=== PATIENT | female | born 2000 | race Caucasian/White ===

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

== ENCOUNTER 2019-06-24 16:49 | Emergency (ER) | payer MEDICAID ==
[~2019-06-24] VITALS: Ht 160 cm; Wt 70.0 kg
[~2019-06-24 16:49] MED LIST: TYLENOL W/COD1 UDTAB PO
[2019-06-24 16:55] VITALS: BP 112/56; TEMP 98.4
[2019-06-24] MEDS ORDERED: AMOXICILLIN 50500 MG (17:35)
[2019-06-24] MEDS ORDERED: PRENATAL TABLET PO (17:36)
[2019-06-24 17:50] LABS: BASO % 0.3 % (0.0-2.0); EOS # 0.2 (0.0-0.7); EOS % 2.3 % (0-4.0); GRAN # 4.6 (1.4-6.5); GRAN % 67.4 % (42.2-75.2); HEMATOCRIT 38.1 % (37.0-47.0); HEMOGLOBIN 12.6 g/dl (12.5-16.0); LYMPH # 1.6 (1.2-3.4); LYMPH % 23.2 % (20.0-51.0); MEAN CELL VOLUME 91 fl (80.0-100.0); MEAN CORPUSCULAR HEMOGLOBIN 30 pg (27.0-31.0); MEAN CORPUSCULAR HGB CONC 33 g/dl (33.0-37.0); MONO # 0.5 (0.1-0.6); MONO % 6.7 % (1.7-9.3); PLATELET COUNT 203 K/mm3 (130-400); RED BLOOD COUNT 4.21 M/mm3 (4.10-5.30); REDCELL DISTRIBUTION WIDTH-CV 13.2 % (11.5-14.5)
[2019-06-24 17:54] LABS: COLLECTION METHOD CLEAN CATCH
[2019-06-24 18:00] LABS: MUCOUS Present /lpf; PH 6 (5-8); URINE APPEARANCE Hazy; URINE BACTERIA None Seen /hpf; URINE BILIRUBIN Negative (NEGATIVE); URINE BLOOD Negative (NEGATIVE); URINE COLOR Yellow; URINE GLUCOSE Negative (NEGATIVE); URINE KETONE Negative (NEGATIVE); URINE LEUKOCYTE ESTERASE 1+ (NEGATIVE); URINE NITRATE Negative (NEGATIVE); URINE PROTEIN(semi-quant) Negative (NEGATIVE); URINE RBC 0-2 /hpf; URINE UROBILINOGEN Negative (NEGATIVE)
[2019-06-24 18:13] LABS: ALBUMIN 3.9 gm/dL (3.5-5.0); BILIRUBIN,TOTAL 0.2 mg/dL (0.0-1.0); CALCIUM 9.4 mg/dL (8.4-10.2); CREATININE, serum 0.57 (0.52-1.25); POTASSIUM 3.9 mmol/L (3.4-5.0)
[2019-06-24] MEDS ORDERED: FLAGYL500 MG PO (18:40)
[2019-06-24 18:46] VITALS: PULSE 84
== END 2019-06-24 18:45 | disposition home or self-care (01) ==
LOC: COL.ER 16:49
PROVIDERS: Nurse Practitioner
DX: O23.591 Infection of other part of genital tract in pregnancy, first trimester (principal); O99.331 Smoking (tobacco) complicating pregnancy, first trimester; B96.89 Other specified bacterial agents as the cause of diseases classified elsewhere; F17.210 Nicotine dependence, cigarettes, uncomplicated; Z3A.00 Weeks of gestation of pregnancy not specified

== ENCOUNTER 2020-01-03 08:48 | Inpatient (IN) | payer MEDICAID ==
[~2020-01-03] VITALS: Ht 160 cm; Wt 95.5 kg
[~2020-01-03 08:48] MED LIST changes: +AMOXICILLIN 50500 MG; +FLAGYL500 MG PO; +PRENATAL TABLET PO
[2020-01-04] VITALS (40 sets, daily range): BP systolic 112–194; BP diastolic 57–108; PULSE 59–81; TEMP 98.1
--- NOTE | 2020-01-04 07:45 | NUR ---
PT AND BOYFRIEND ARRIVE TO UNIT FOR SCHEDULED INDUCTION OF LABOR AT 0735. PT CHANGED INTO GOWN, EFM EXPLAINED AND PLACED. PT DENIES LEAKING OF FLUID, VAGINAL BLEEDING, AND CONTRACTIONS, REPORTS GOOD MOVEMENT. PT ANXIOUS WITH MANY QUESTIONS.
[2020-01-04] MEDS ORDERED: IRON PO (08:16)
[2020-01-04 08:57] LABS: BASO % 0.3 % (0.0-2.0); EOS # 0.4 (0.0-0.7); EOS % 4.4 % (0-4.0); GRAN # 6.2 (1.4-6.5); HEMATOCRIT 38.5 % (37.0-47.0); HEMOGLOBIN 12.6 g/dl (12.5-16.0); LYMPH # 2.4 (1.2-3.4); LYMPH % 24.1 % (20.0-51.0); MEAN CELL VOLUME 93 fl (80.0-100.0); MEAN CORPUSCULAR HEMOGLOBIN 31 pg (27.0-31.0); MEAN CORPUSCULAR HGB CONC 33 g/dl (33.0-37.0); MEAN PLATELET VOLUME 11.9 fl (7.4-10.4); MONO # 0.9 (0.1-0.6); MONO % 8.7 % (1.7-9.3); PLATELET COUNT 177 K/mm3 (130-400); RED BLOOD COUNT 4.13 M/mm3 (4.10-5.30); REDCELL DISTRIBUTION WIDTH-CV 14.5 % (11.5-14.5)
--- NOTE | 2020-01-04 09:13 | NUR ---
0750 - IV STARTED IN LEFT HAND, LABS OBTAINED, LR STARTED PER PROTOCOL. ASSESSMENT DONE, CONSENTS DISCUSSED AND SIGNED. VITALS TAKEN. 0818 - DR. DEWEY TO PT BEDSIDE. SVE PER PROVIDER /-2. ATTEMPT AT AROM, NO FLUID RETURNED. DR. DEWEY TO RETURN FOR ANOTHER ATTEMPT. 0822 - PITOCIN STARTED AT 2MU/ML/HR PER PROTOCOL. 0845 - BP ELEVATED AT 157/103. RECHECK IS 164/108. BP CHECKED IN OTHER ARM AT 160/94. DR. DEWEY NOTIFIED, LABS ORDERED. 0905 - UA COLLECTED.
[2020-01-04 09:19] LABS: COLLECTION METHOD CLEAN CATCH
[2020-01-04 09:31] LABS: MUCOUS Present /lpf; PH 6 (5-8); SQUAMOUS EPITHELIAL 20-50 /hpf; URINE APPEARANCE Cloudy; URINE BACTERIA Occasional /hpf; URINE BILIRUBIN Negative (NEGATIVE); URINE BLOOD 3+ (NEGATIVE); URINE COLOR Yellow; URINE GLUCOSE Negative (NEGATIVE); URINE KETONE Negative (NEGATIVE); URINE LEUKOCYTE ESTERASE Negative (NEGATIVE); URINE NITRATE Negative (NEGATIVE); URINE PROTEIN(semi-quant) 1+ (NEGATIVE); URINE RBC >50 /hpf; URINE UROBILINOGEN Negative (NEGATIVE)
[2020-01-04 09:42] LABS: ALBUMIN 3.5 gm/dL (3.5-5.0); BILIRUBIN,TOTAL 0.2 mg/dL (0.0-1.0); CALCIUM 9.5 mg/dL (8.4-10.2); CREATININE, serum 0.51 (0.52-1.25); POTASSIUM 3.6 mmol/L (3.4-5.0); TOTAL PROTEIN 6.5 gm/dL (6.4-8.2)
--- NOTE | 2020-01-04 09:43 | NUR ---
0903 - PT UP TO BATHROOM, VOIDED 150 DARK YELLOW URINE. UPON RETURN TO BED, PT STATED SHE FELT A LARGE GUSH OF FLUID, AND THAT IT CONTINUED TO COME OUT. UPON INSPECTION OF BED PAD, LARGE AREA OF CLEAR FLUID NOTED. DR. DEWEY NOTIFIED OF MEMBRANE RUPTURE.
--- NOTE | 2020-01-04 13:29 | NUR ---
1315 - DR. DEWEY TO PT BEDSIDE. SVE PER PROVIDER /-2. IUPC PLACED FOR BETTER EVALUATION OF CONTRACTIONS. PITOCIN INCREASE TO 20MU/ML/HR AT 1320 PER PHYSICIAN. PT REPOSITIONED TO RIGHT LATERAL POSITION WITH PEANUT BALL IN PLACED.
--- NOTE | 2020-01-04 17:43 | NUR ---
1536 - LATE DECELERATION WITH FHT TO 120, MODERATE VARIABLILITY, RETURNED TO BASELINE AFTER 70 SECONDS 1540 - LATE DECELERATION WITH FHT TO 100, MODERATE VARIABILITY, RETURNED TO BASELINE AFTER 80 SECONDS. 1544 - LATE DECELERATION LASTING 90 SECONDS WITH FHT TO 70. RN AT BEDSIDE. SVE 7/100/-1. PT REPOSITIONED WR. RN REMAINS AT BEDSIDE. CONTINUED LATE DECELERATIONS OVER NEXT 3 CONTRACTIONS. Tone SCHAFER RN AND Christie VYAS RN TO BEDSIDE TO ASSIST. PT REPOSITIONED RL AT 1549. 1550 - SVE 8/100/0. PITOCIN TURNED OFF. PT REPOSITIONED TO KNEE-CHEST. DR. DEWEY NOTIFIED OF LATE DECELERATIONS AND CURRENT PT STATUS. SEE PHYSICIAN NOTIFICATION. RN REMAINS AT BEDSIDE TO HOLD FHR MONITOR ON WHILE PT IN KNEE-CHEST POSITION. 1554 - LATE DECELERATION WITH FHT INTO 100'S, RETURNING TO BASELINE AT 90 SECONDS. 1557 - LATE DECELERATION WITH FHT TO 120, RETURNING TO BASELINE AFTER 30 SECONDS. 1601 - DR. DEWEY TO PT BEDSIDE. PT COMPLETE PER PHYSICIAN SVE AT 1602. NURSERY NOTIFIED, ROOM PREPPED FOR DELIVERY. 1607 - PT STARTS PUSHING WITH CONTRACTIONS WITH PHYSICIAN AT BEDSIDE. FHT DIFFICULT TO TRACE DURING PUSHES. MODERATE VARIABLILITY REMAINS, PHYSICIAN MONITORING FHT. 1630 - Gita WALKER RN OF NURSERY CALLED TO PT BEDSIDE. PT AND PHYSICIAN PREPPED FOR DELIVERY. 1643 - VIABLE FEMALE DELIVERED SPONTANEOUSLY BY DR. DEWEY. THICK MEC FLUID. PLACED ON MOTHER'S ABDOMEN WHERE DRIED AND STIMULATED. CARE OF INFANT TRANSFERRED TO Gita WALKER RN OF NURSERY. CORD GASES AND CORD BLOOD DRAWN BY PHYSICIAN. REPAIR OF 1ST DEGREE PERINEAL AND BILATERAL LABIAL LACERATIONS STARTED BY PHYSICIAN. 1655 - PLACENTA SPONTANEOUSLY DELIVERED BY DR. DEWEY. FUNDAL MASSAGE PROVIDED. PITOCIN STARTED PER PROTOCOL. REPAIR COMPLETED, PERICARE PROVIDED, ICE PACK PLACED. PT REPOSITIONED FOR COMFORT.
[2020-01-05] VITALS (7 sets, daily range): BP systolic 130–139; BP diastolic 70–86; PULSE 75–105; TEMP 97.6–98.8
[2020-01-06 10:00] VITALS: BP 138/78; PULSE 75; TEMP 98
[2020-01-06] MEDS ORDERED: IBU600 MG PO (10:18)
--- NOTE | 2020-01-06 13:30 | NUR ---
Discharge instructions given, pt verbalizes understanding. No further questions. Bands matched and hugs removed.
== END 2020-01-06 13:55 | disposition home or self-care (01) | DRG 806 ==
LOC: LDR 01-04 07:30 → OB 01-04 21:13
PROVIDERS: ADMIT Obstetrics & Gynecology
PROC: 10E0XZZ Delivery of Products of Conception, External Approach (ICD-10-PCS; principal; 2020-01-04)
PROC: 0HQ9XZZ Repair Perineum Skin, External Approach (ICD-10-PCS; 2020-01-04)
PROC: 10907ZC Drainage of Amniotic Fluid, Therapeutic from Products of Conception, Via Natural or Artificial Opening (ICD-10-PCS; 2020-01-04)
PROC: 3E033VJ Introduction of Other Hormone into Peripheral Vein, Percutaneous Approach (ICD-10-PCS; 2020-01-04)
DX: O99.334 Smoking (tobacco) complicating childbirth (principal); O99.354 Diseases of the nervous system complicating childbirth; Z37.0 Single live birth; O48.0 Post-term pregnancy; G43.909 Migraine, unspecified, not intractable, without status migrainosus; O77.0 Labor and delivery complicated by meconium in amniotic fluid; Z3A.40 40 weeks gestation of pregnancy
CPT/HCPCS: J2590; J2795; J7120

== ENCOUNTER 2020-05-19 10:13 | Emergency (ER) | payer MEDICAID ==
[~2020-05-19] VITALS: Ht 162.6 cm; Wt 78.6 kg
[~2020-05-19 10:13] MED LIST changes: +IBU600 MG PO; +IRON PO
[2020-05-19 10:20] VITALS: TEMP 97.4
[2020-05-19 11:54] VITALS: BP 125/79; PULSE 80
== END 2020-05-19 11:53 | disposition home or self-care (01) ==
LOC: COL.ER 10:13
DX: Z20.828 Contact with and (suspected) exposure to other viral communicable diseases (principal); F17.210 Nicotine dependence, cigarettes, uncomplicated

== ENCOUNTER → 2021-12-18 | Outpatient (CLI) | payer MEDICAID | END | disposition still patient (30) | LOC: COL.RAD 12-10 12:45 | DX: R59.1 Generalized enlarged lymph nodes (principal); M54.2 Cervicalgia ==

== ENCOUNTER 2024-04-04 09:55 | Emergency (ER) | payer SELFPAY ==
[~2024-04-04] VITALS: Ht 162.6 cm; Wt 81.8 kg
[2024-04-04 10:00] VITALS: TEMP 98.8
[2024-04-04 11:24] VITALS: BP 133/81; PULSE 64
== END 2024-04-04 11:24 | disposition home or self-care (01) ==
LOC: COL.ER 09:55
DX: S61.214A Laceration without foreign body of right ring finger without damage to nail, initial encounter (principal); Z23 Encounter for immunization; W23.0XXA Caught, crushed, jammed, or pinched between moving objects, initial encounter

== ENCOUNTER 2024-06-19 16:30 | Emergency (ER) | payer MEDICAID ==
[~2024-06-19] VITALS: Ht 162.6 cm; Wt 81.8 kg
[2024-06-19 16:43] VITALS: TEMP 98.1
[2024-06-19 18:46] VITALS: BP 132/67; PULSE 83
== END 2024-06-19 18:45 | disposition home or self-care (01) ==
LOC: COL.ER 16:30
DX: S05.02XA Injury of conjunctiva and corneal abrasion without foreign body, left eye, initial encounter (principal); W45.8XXA Other foreign body or object entering through skin, initial encounter